=== PATIENT | male | born 1930 | race Caucasian/White ===

== ENCOUNTER 2017-02-23 10:54 | Inpatient (IN) | payer MEDICARE, OTHER ==
[~2017-02-23] VITALS: Ht 180.3 cm; Wt 74.1 kg
[2017-02-23 12:15] LABS: HEMATOCRIT 44.7 % (39.2-51.8); HEMOGLOBIN 15.3 g/dL (13.7-18.0); WHITE BLOOD COUNT 10.3 x10^3/uL (3.4-10)
[2017-02-23 12:19] LABS: RAPID INFLUENZA A Negative (Negative); RAPID INFLUENZA B Negative (Negative)
[2017-02-23 12:26] LABS: ASPARTATE AMINO TRANSFERASE 16 U/L (15-37); BLOOD UREA NITROGEN 10 mg/dL (7-18)
[2017-02-23] MEDS ORDERED: CEFTRIAXONE PMX 1GM/50ML 50 ML IVPB ONE (13:00)
[2017-02-23] MEDS ORDERED: SODIUM CHLORIDE 0.9% 1,000 ML IV ONE (13:04)
[2017-02-23] MEDS ORDERED: SODIUM CHLORIDE FLUSH 10ML SYR IVF PRN (13:30)
[2017-02-23] MEDS ORDERED: OMEP20TA62 PO (13:40)
[2017-02-23] MEDS ORDERED: HYDR12.53 PO (13:40)
[2017-02-23] MEDS ORDERED: CEFTRIAXONE PMX 1GM/50ML 50 ML ONE (13:43)
[2017-02-23] MEDS: D5%-0.45% NACL 1,000 ML IV SCH (13:54)
[2017-02-23] MEDS ORDERED: ONDANSETRON 2MG/ML, 2ML IVPush PRN (14:00)
[2017-02-23] MEDS ORDERED: ACETAMINOPHEN 325 MG TABLET PO PRN (14:00)
[2017-02-23] MEDS ORDERED: BISACODYL 10 MG SUPP PR PRN (14:00)
[2017-02-23] MEDS ORDERED: DOCUSATE 100 MG CAPSULE PO PRN (14:00)
[2017-02-23] MEDS ORDERED: ONDANSETRON ODT 4 MG PO PRN (14:00)
[2017-02-23] MEDS ORDERED: PHARMACY MAY ADJ FOR RENAL FX MC PRN (14:00)
[2017-02-23 14:45] VITALS: BP 129/78
[2017-02-23] MEDS ORDERED: ALBUTEROL/IPRATROPIUM 2.5MG/0.5MG, 3 ML ONE (17:03)
[2017-02-23] MEDS: ENOXAPARIN 40 MG/0.4 ML SQ SCH (17:06)
[2017-02-23] MEDS: AZITHROMYCIN 500 MG in SODIUM CHLORIDE 0.9% 250 ML IV SCH (17:06)
[2017-02-23] MEDS ORDERED: ALBUTEROL/IPRATROPIUM 2.5MG/0.5MG, 3 ML NPPB PRN (17:30)
[2017-02-23 20:03] VITALS: BP 119/51
[2017-02-24] MEDS ORDERED: CEFTRIAXONE PMX 1GM/50ML 50 ML IVPB SCH (02:00)
[2017-02-24] MEDS: CEFTRIAXONE 1,000 MG in DEXTROSE 5% 50 ML IVPB SCH (02:04)
[2017-02-24] MEDS: D5%-0.45% NACL 1,000 ML IV SCH ×3 (02:05→20:31)
[2017-02-24 02:12] VITALS: BP 139/69
[2017-02-24 05:49] LABS: HEMATOCRIT 38.5 % (39.2-51.8); HEMOGLOBIN 13.2 g/dL (13.7-18.0); WHITE BLOOD COUNT 9.2 x10^3/uL (3.4-10)
[2017-02-24 07:10] VITALS: BP 126/57
[2017-02-24] MEDS: HYDROCHLOROTHIAZIDE 12.5 MG CAPSULE PO SCH (08:35)
[2017-02-24] MEDS ORDERED: OMEPRAZOLE 20 MG CAPSULE.DR PO SCH (09:00)
[2017-02-24] MEDS: GUAIFENESIN/DM 200-20MG, 10ML UDC PO PRN ×2 (11:00→20:31)
[2017-02-24 11:51] LABS: IS PT STATUS REG ER OR PRE ER? NO
[2017-02-24] MEDS: AZITHROMYCIN 500 MG in SODIUM CHLORIDE 0.9% 250 ML IV SCH (14:09)
[2017-02-24] MEDS: ENOXAPARIN 40 MG/0.4 ML SQ SCH (14:10)
[2017-02-24 14:15] VITALS: BP 147/72
[2017-02-24] MEDS ORDERED: FLU VACC QS2017-18 (36MOS+) UP/PF 0.5 ML IM-VACC ONE (15:00)
[2017-02-24] MEDS ORDERED: PNEUMOCOCCAL 23 VACCINE IM-VACC ONE (15:00)
[2017-02-24] MEDS ORDERED: OMNIPAQUE 350 MG/ML, 100ML BOTTLE ONE (15:32)
[2017-02-24 17:23] LABS: IS PT STATUS REG ER OR PRE ER? NO
[2017-02-24 19:56] VITALS: BP 136/64
[2017-02-24 23:25] LABS: IS PT STATUS REG ER OR PRE ER? NO
[2017-02-25] MEDS: CEFTRIAXONE 1,000 MG in DEXTROSE 5% 50 ML IVPB SCH (02:17)
[2017-02-25] MEDS: GUAIFENESIN/DM 200-20MG, 10ML UDC PO PRN ×3 (02:20→18:42)
[2017-02-25 02:21] VITALS: BP 158/74
[2017-02-25] MEDS: D5%-0.45% NACL 1,000 ML IV SCH ×3 (06:18→23:30)
[2017-02-25 06:19] LABS: IS PT STATUS REG ER OR PRE ER? NO
[2017-02-25 07:39] VITALS: BP 120/62
[2017-02-25] MEDS: HYDROCHLOROTHIAZIDE 12.5 MG CAPSULE PO SCH (08:54)
[2017-02-25] MEDS: ALBUTEROL/IPRATROPIUM 2.5MG/0.5MG, 3 ML NPPB SCH ×4 (11:00→23:00)
[2017-02-25 13:27] VITALS: BP 132/58
[2017-02-25] MEDS: AZITHROMYCIN 500 MG in SODIUM CHLORIDE 0.9% 250 ML IV SCH (14:13)
[2017-02-25] MEDS: ENOXAPARIN 40 MG/0.4 ML SQ SCH (15:49)
[2017-02-25 20:12] VITALS: BP 159/72
[2017-02-26] MEDS ORDERED: CEFTRIAXONE 1,000 MG in SODIUM CHLORIDE 0.9% 50 ML IVPB SCH (02:00)
[2017-02-26 02:11] VITALS: BP 129/61
[2017-02-26] MEDS: ALBUTEROL/IPRATROPIUM 2.5MG/0.5MG, 3 ML NPPB SCH ×6 (02:49→23:00)
[2017-02-26 05:39] LABS: HEMATOCRIT 38.4 % (39.2-51.8); WHITE BLOOD COUNT 10.8 x10^3/uL (3.4-10)
[2017-02-26 05:47] LABS: BLOOD UREA NITROGEN 6 mg/dL (7-18)
[2017-02-26 05:51] LABS: ASPARTATE AMINO TRANSFERASE 62 U/L (15-37)
[2017-02-26] MEDS ORDERED: POTASSIUM CHLORIDE 20 MEQ in SODIUM CHLORIDE 0.9% 250 ML IV ONE (07:00)
[2017-02-26 08:25] VITALS: BP 136/64
[2017-02-26] MEDS: HYDROCHLOROTHIAZIDE 12.5 MG CAPSULE PO SCH (09:20)
[2017-02-26] MEDS: D5%-0.45% NACL 1,000 ML IV SCH ×2 (13:22→23:50)
[2017-02-26] MEDS ORDERED: LIDOCAINE 1%, 20ML ONE (14:48)
[2017-02-26] MEDS: PIPERACILLIN/TAZO/PMX 4.5GM 100 ML IV SCH ×2 (15:10→22:08)
[2017-02-26] MEDS: ENOXAPARIN 40 MG/0.4 ML SQ SCH (15:10)
[2017-02-26 17:15] VITALS: BP 152/67
[2017-02-26 19:28] VITALS: BP 130/65
[2017-02-27 02:30] VITALS: BP 134/72
[2017-02-27] MEDS: ALBUTEROL/IPRATROPIUM 2.5MG/0.5MG, 3 ML NPPB SCH ×8 (03:00→20:10)
[2017-02-27 05:55] LABS: HEMATOCRIT 38.3 % (39.2-51.8); HEMOGLOBIN 13.2 g/dL (13.7-18.0)
[2017-02-27 06:06] LABS: BLOOD UREA NITROGEN 6 mg/dL (7-18)
[2017-02-27] MEDS: PIPERACILLIN/TAZO/PMX 4.5GM 100 ML IV SCH ×2 (07:12→15:37)
[2017-02-27 07:20] VITALS: BP 149/66
[2017-02-27] MEDS: D5%-0.45% NACL 1,000 ML IV SCH ×2 (08:15→15:14)
[2017-02-27] MEDS: HYDROCHLOROTHIAZIDE 12.5 MG CAPSULE PO SCH (08:15)
[2017-02-27] MEDS ORDERED: FENTANYL PF 100 MCG/2ML ONE (09:10)
[2017-02-27] MEDS ORDERED: MIDAZOLAM 1 MG/ML, 5ML ONE (09:11)
[2017-02-27 13:55] VITALS: BP 133/71
[2017-02-27] MEDS: ENOXAPARIN 40 MG/0.4 ML SQ SCH (15:14)
[2017-02-27] MEDS ORDERED: POTASSIUM CHLORIDE 20 MEQ TAB.ER.PRT PO ONE ×2 (15:30→17:00)
[2017-02-27] MEDS: D5%-0.45NACL+KCL 20MEQ 1,000 ML IV SCH (16:29)
[2017-02-27 18:50] LABS: BLOOD UREA NITROGEN 5 mg/dL (7-18)
[2017-02-27 21:00] VITALS: BP 147/78
[2017-02-27] MEDS: ZOLPIDEM 5MG TABLET PO SCH (21:00)
[2017-02-27] MEDS: PIPERACILLIN/TAZO 4.5 GM in DEXTROSE 5% 100 ML IV SCH (22:55)
[2017-02-28] MEDS: D5%-0.45NACL+KCL 20MEQ 1,000 ML IV SCH ×3 (00:36→20:00)
[2017-02-28 01:48] VITALS: BP 127/76
[2017-02-28] MEDS ORDERED: SODIUM CHLORIDE INHALATION 7%, 4 ML NPPB ONE (05:00)
[2017-02-28] MEDS: PIPERACILLIN/TAZO 4.5 GM in DEXTROSE 5% 100 ML IV SCH ×3 (05:26→23:09)
[2017-02-28 06:49] LABS: ASPARTATE AMINO TRANSFERASE 41 U/L (15-37); BLOOD UREA NITROGEN 6 mg/dL (7-18)
[2017-02-28 07:52] LABS: HEMATOCRIT 37.4 % (39.2-51.8); HEMOGLOBIN 12.8 g/dL (13.7-18.0); WHITE BLOOD COUNT 9.9 x10^3/uL (3.4-10)
[2017-02-28] MEDS: ALBUTEROL/IPRATROPIUM 2.5MG/0.5MG, 3 ML NPPB SCH ×4 (07:55→19:30)
[2017-02-28 08:30] VITALS: BP 124/70
[2017-02-28] MEDS ORDERED: IBUPROFEN 200 MG TABLET PO PRN (08:30)
[2017-02-28] MEDS: HYDROCHLOROTHIAZIDE 12.5 MG CAPSULE PO SCH (10:01)
[2017-02-28] MEDS ORDERED: POTASSIUM CHLORIDE 40 MEQ in SODIUM CHLORIDE 0.9% 500 ML IV ONE (11:00)
[2017-02-28] MEDS: ENOXAPARIN 40 MG/0.4 ML SQ SCH (14:04)
[2017-02-28 14:17] VITALS: BP 118/66
[2017-02-28 20:12] VITALS: BP 142/73
[2017-02-28] MEDS: ZOLPIDEM 5MG TABLET PO SCH (21:00)
[2017-03-01] MEDS: ALBUTEROL/IPRATROPIUM 2.5MG/0.5MG, 3 ML NPPB SCH ×5 (03:10→22:00)
[2017-03-01 04:37] VITALS: BP 127/66
[2017-03-01 04:41] VITALS: BP 127/66
[2017-03-01] MEDS: D5%-0.45NACL+KCL 20MEQ 1,000 ML IV SCH ×2 (05:06→22:58)
[2017-03-01] MEDS: PIPERACILLIN/TAZO 4.5 GM in DEXTROSE 5% 100 ML IV SCH ×3 (06:49→22:58)
[2017-03-01 08:00] VITALS: BP 121/77
[2017-03-01] MEDS ORDERED: POTASSIUM CHLORIDE 20 MEQ TAB.ER.PRT PO ONE (08:30)
[2017-03-01] MEDS ORDERED: D5%-0.45NACL+KCL 40MEQ 1,000 ML IV SCH (08:30)
[2017-03-01] MEDS ORDERED: POTASSIUM CHLORIDE 20 MEQ TAB.ER.PRT PO SCH ×2 (08:30→17:00)
[2017-03-01 08:33] LABS: HEMATOCRIT 37.4 % (39.2-51.8); HEMOGLOBIN 12.8 g/dL (13.7-18.0); WHITE BLOOD COUNT 10.2 x10^3/uL (3.4-10)
[2017-03-01 08:40] LABS: BLOOD UREA NITROGEN 8 mg/dL (7-18)
[2017-03-01] MEDS: HYDROCHLOROTHIAZIDE 12.5 MG CAPSULE PO SCH (09:32)
[2017-03-01] MEDS ORDERED: D5%-0.45NACL+KCL 20MEQ 1,000 ML IV SCH (12:00)
[2017-03-01 13:10] VITALS: BP 132/77
[2017-03-01 20:59] VITALS: BP 161/77
[2017-03-01] MEDS: ZOLPIDEM 5MG TABLET PO SCH (21:00)
[2017-03-01] MEDS: GUAIFENESIN/DM 200-20MG, 10ML UDC PO PRN (22:59)
[2017-03-02 05:00] VITALS: BP 149/75
[2017-03-02 05:25] LABS: HEMATOCRIT 37.6 % (39.2-51.8); HEMOGLOBIN 12.7 g/dL (13.7-18.0); WHITE BLOOD COUNT 12.2 x10^3/uL (3.4-10)
[2017-03-02 05:39] LABS: BLOOD UREA NITROGEN 8 mg/dL (7-18)
[2017-03-02] MEDS: PIPERACILLIN/TAZO 4.5 GM in DEXTROSE 5% 100 ML IV SCH ×3 (07:00→23:01)
[2017-03-02] MEDS: ALBUTEROL/IPRATROPIUM 2.5MG/0.5MG, 3 ML NPPB SCH ×2 (07:55→11:20)
[2017-03-02 08:45] VITALS: BP 130/71
[2017-03-02] MEDS: D5%-0.45NACL+KCL 20MEQ 1,000 ML IV SCH ×2 (08:51→18:48)
[2017-03-02] MEDS: HYDROCHLOROTHIAZIDE 12.5 MG CAPSULE PO SCH (08:51)
[2017-03-02 09:39] LABS: ABG COLLECTION SITE RIGHT RADIAL; COLLATERAL CIRCULATION TESTING NORMAL; FIO2 70 %
[2017-03-02] MEDS ORDERED: AZITHROMYCIN 500 MG in SODIUM CHLORIDE 0.9% 250 ML IV ONE (13:00)
[2017-03-02] MEDS ORDERED: FENTANYL PF 100 MCG/2ML ONE (13:06)
[2017-03-02] MEDS: PROPOFOL 100 ML IV PRN ×2 (13:30→19:27)
[2017-03-02] MEDS ORDERED: FENTANYL PF 100 MCG/2ML IV ONE (13:30)
[2017-03-02] MEDS: FENTANYL PF 100 MCG/2ML IVPush PRN ×2 (13:50→14:40)
[2017-03-02] MEDS ORDERED: SENNOSIDES 8.8 MG/5 ML ORAL SOL NG PRN (14:00)
[2017-03-02] MEDS ORDERED: SENNA/DOCUSATE TABLET NG PRN (14:00)
[2017-03-02] MEDS ORDERED: PHARMACY MAY ADJ FOR RENAL FX MC SCH (14:00)
[2017-03-02] MEDS ORDERED: LIDOCAINE-MPF 1%, 2ML ENDO PRN (14:00)
[2017-03-02 14:53] LABS: ABG COLLECTION SITE RIGHT RADIAL
[2017-03-02 14:54] LABS: COLLATERAL CIRCULATION TESTING NORMAL
[2017-03-02] MEDS: FAMOTIDINE 20 MG/2 ML IV SCH (17:39)
[2017-03-02] MEDS: ALBUTEROL/IPRATROPIUM 2.5MG/0.5MG, 3 ML INLINE SCH ×2 (18:00→22:00)
[2017-03-02] MEDS: NOREPINEPHRINE 4 MG in SODIUM CHLORIDE 0.9% 246 ML IV PRN (19:30)
[2017-03-02] MEDS: ZOLPIDEM 5MG TABLET PO SCH (20:52)
[2017-03-02] MEDS ORDERED: SODIUM CHLORIDE 0.9% 1,000ML IVBOLUS ONE ×2 (21:30→23:30)
[2017-03-03] MEDS: ALBUTEROL/IPRATROPIUM 2.5MG/0.5MG, 3 ML INLINE SCH ×6 (02:00→22:00)
[2017-03-03] MEDS: FAMOTIDINE 20 MG/2 ML IV SCH ×2 (02:20→14:48)
[2017-03-03] MEDS: PROPOFOL 100 ML IV PRN ×4 (03:53→23:14)
[2017-03-03] MEDS: NOREPINEPHRINE 4 MG in SODIUM CHLORIDE 0.9% 246 ML IV PRN (03:58)
[2017-03-03 04:00] VITALS: BP 114/60
[2017-03-03 04:16] LABS: ABG COLLECTION SITE RIGHT RADIAL; COLLATERAL CIRCULATION TESTING NORMAL
[2017-03-03 04:30] LABS: ASPARTATE AMINO TRANSFERASE 24 U/L (15-37); BLOOD UREA NITROGEN 19 mg/dL (7-18)
[2017-03-03 04:37] LABS: HEMATOCRIT 37.6 % (39.2-51.8); HEMOGLOBIN 12.6 g/dL (13.7-18.0); WHITE BLOOD COUNT 16.1 x10^3/uL (3.4-10)
[2017-03-03] MEDS: D5%-0.45NACL+KCL 20MEQ 1,000 ML IV SCH ×2 (06:22→16:22)
[2017-03-03] MEDS: PIPERACILLIN/TAZO 4.5 GM in DEXTROSE 5% 100 ML IV SCH ×3 (06:40→22:52)
[2017-03-03] MEDS ORDERED: ALBUMIN HUMAN 25% 100 ML IV SCH (08:30)
[2017-03-03] MEDS: HYDROCHLOROTHIAZIDE 12.5 MG CAPSULE PO SCH (09:00)
[2017-03-03] MEDS: ALBUMIN HUMAN 25% 100 ML IV SCH ×3 (09:00→21:11)
[2017-03-03] MEDS: PICC FLUSH PROTOCOL XX SCH ×2 (09:30→21:00)
[2017-03-03] MEDS: AZITHROMYCIN 250 MG TABLET PO SCH (13:50)
[2017-03-03] MEDS ORDERED: VECURONIUM 10 MG ONE (14:00)
[2017-03-03] MEDS ORDERED: MIDAZOLAM 1 MG/ML, 5ML ONE (14:00)
[2017-03-03] MEDS ORDERED: PROPOFOL 10 MG/ML, 100ML IV ONE (14:00)
[2017-03-03] MEDS ORDERED: SUCCINYLCHOLINE 20 MG/ML, 10ML ONE (14:00)
[2017-03-03] MEDS ORDERED: SODIUM CHLORIDE 0.9%, 500ML IVBOLUS ONE ×3 (17:00→20:00)
[2017-03-03] MEDS: ZOLPIDEM 5MG TABLET PO SCH (21:00)
[2017-03-04] MEDS: ALBUTEROL/IPRATROPIUM 2.5MG/0.5MG, 3 ML INLINE SCH ×6 (02:00→22:26)
[2017-03-04] MEDS: FAMOTIDINE 20 MG/2 ML IV SCH ×2 (02:55→14:35)
[2017-03-04] MEDS: ALBUMIN HUMAN 25% 100 ML IV SCH ×4 (02:55→20:51)
[2017-03-04 04:26] LABS: ABG COLLECTION SITE RIGHT RADIAL; COLLATERAL CIRCULATION TESTING NORMAL
[2017-03-04 04:37] LABS: HEMATOCRIT 30.8 % (39.2-51.8); HEMOGLOBIN 10.4 g/dL (13.7-18.0); WHITE BLOOD COUNT 9.2 x10^3/uL (3.4-10)
[2017-03-04 04:38] LABS: BLOOD UREA NITROGEN 27 mg/dL (7-18)
[2017-03-04 05:00] VITALS: BP 113/58
[2017-03-04] MEDS: PIPERACILLIN/TAZO 4.5 GM in DEXTROSE 5% 100 ML IV SCH ×2 (05:27→14:35)
[2017-03-04] MEDS: PROPOFOL 100 ML IV PRN ×2 (05:28→21:37)
[2017-03-04] MEDS: AZITHROMYCIN 250 MG TABLET PO SCH (09:00)
[2017-03-04] MEDS: PICC FLUSH PROTOCOL XX SCH ×2 (09:00→20:52)
[2017-03-04] MEDS: ENOXAPARIN 40 MG/0.4 ML SQ SCH (09:20)
[2017-03-04] MEDS: D5%-0.45NACL+KCL 20MEQ 1,000 ML IV SCH ×2 (09:31→19:41)
[2017-03-04] MEDS: HYDROCHLOROTHIAZIDE 12.5 MG CAPSULE PO SCH (10:16)
[2017-03-04 14:07] LABS: CHLAMYDIA PNEUMONIAE IGM <1:10 (Neg:<1:10)
[2017-03-04] MEDS: FENTANYL PF 100 MCG/2ML IVPush PRN ×2 (14:35→22:28)
[2017-03-04] MEDS ORDERED: SODIUM CHLORIDE 0.9%, 500ML IVBOLUS PRN (18:00)
[2017-03-04] MEDS: ZOLPIDEM 5MG TABLET PO SCH (20:52)
[2017-03-04] MEDS: [UNRECOGNIZED DRUG - MIXTURE] IVPB SCH (23:00)
[2017-03-05] MEDS ORDERED: SODIUM CHLORIDE 0.9% 500 ML IV PRN (00:30)
[2017-03-05] MEDS: FAMOTIDINE 20 MG/2 ML IV SCH ×2 (02:06→16:17)
[2017-03-05] MEDS: ALBUTEROL/IPRATROPIUM 2.5MG/0.5MG, 3 ML INLINE SCH ×6 (02:18→22:30)
[2017-03-05] MEDS: FENTANYL PF 100 MCG/2ML IVPush PRN ×4 (02:34→16:15)
[2017-03-05] MEDS: ALBUMIN HUMAN 25% 100 ML IV SCH ×4 (03:18→20:23)
[2017-03-05 04:31] LABS: ABG COLLECTION SITE RIGHT RADIAL; COLLATERAL CIRCULATION TESTING NORMAL
[2017-03-05 04:35] VITALS: BP 127/56
[2017-03-05 04:35] LABS: HEMATOCRIT 28.1 % (39.2-51.8); HEMOGLOBIN 9.4 g/dL (13.7-18.0); WHITE BLOOD COUNT 7.1 x10^3/uL (3.4-10)
[2017-03-05 04:46] LABS: BLOOD UREA NITROGEN 29 mg/dL (7-18)
[2017-03-05] MEDS: [UNRECOGNIZED DRUG - MIXTURE] IVPB SCH ×3 (06:39→23:37)
[2017-03-05] MEDS ORDERED: GLUCAGON 1 MG IM PRN (08:00)
[2017-03-05] MEDS ORDERED: DEXTROSE 4 GM TAB.CHEW PO PRN (08:00)
[2017-03-05] MEDS ORDERED: DEXTROSE 50%, 50ML SYRINGE IVPush PRN (08:00)
[2017-03-05] MEDS: ENOXAPARIN 40 MG/0.4 ML SQ SCH (08:36)
[2017-03-05] MEDS: AZITHROMYCIN 250 MG TABLET PO SCH (08:37)
[2017-03-05] MEDS: HYDROCHLOROTHIAZIDE 12.5 MG CAPSULE PO SCH (08:37)
[2017-03-05] MEDS: SODIUM CHLORIDE FLUSH 10ML SYR IVF SCH ×2 (08:39→21:00)
[2017-03-05] MEDS: PICC FLUSH PROTOCOL XX SCH ×2 (08:39→21:00)
[2017-03-05] MEDS ORDERED: INSULIN ASPART 100 UNITS/ML, PEN ONE (08:50)
[2017-03-05] MEDS: OCULAR LUBRICANT OPHTH OINT 3.5 GM EACHEYE PRN ×2 (08:55→12:59)
[2017-03-05] MEDS: INSULIN ASPART 100 UNITS/ML, PEN SQ-INSULIN SCH ×3 (08:55→20:23)
[2017-03-05] MEDS: PROPOFOL 100 ML IV PRN ×3 (09:10→23:37)
[2017-03-05] MEDS ORDERED: FUROSEMIDE 20 MG/2 ML IV ONE (11:00)
[2017-03-05] MEDS: BISACODYL 10 MG SUPP PR PRN (12:58)
[2017-03-05] MEDS ORDERED: POLYETHYLENE GLYCOL 17 GM PACKET NG ONE (13:00)
[2017-03-05 23:06] LABS: ADENOVIRUS PCR Negative (Negative); INFLUENZA A PCR Negative (Negative); INFLUENZA B PCR Negative (Negative); METAPNEUMOVIRUS PCR Negative (Negative); PARAINFLUENZA 1 PCR Negative (Negative); PARAINFLUENZA 2 PCR Negative (Negative); PARAINFLUENZA 3 PCR Negative (Negative); RESP SYNCYTIAL VIRUS A PCR Negative (Negative); RESP SYNCYTIAL VIRUS B PCR Negative (Negative); RHINOVIRUS PCR Negative (Negative)
[2017-03-06 02:30] LABS: BLOOD UREA NITROGEN 36 mg/dL (7-18)
[2017-03-06 02:32] LABS: HEMATOCRIT 29.3 % (39.2-51.8); WHITE BLOOD COUNT 7.3 x10^3/uL (3.4-10)
[2017-03-06] MEDS: ALBUTEROL/IPRATROPIUM 2.5MG/0.5MG, 3 ML INLINE SCH ×6 (02:32→21:55)
[2017-03-06] MEDS: FAMOTIDINE 20 MG/2 ML IV SCH ×2 (02:56→16:38)
[2017-03-06] MEDS: ALBUMIN HUMAN 25% 100 ML IV SCH ×4 (02:56→19:13)
[2017-03-06] MEDS: INSULIN ASPART 100 UNITS/ML, PEN SQ-INSULIN SCH ×4 (03:27→20:32)
[2017-03-06 04:17] VITALS: BP 131/59
[2017-03-06 04:36] LABS: ABG COLLECTION SITE LEFT RADIAL; COLLATERAL CIRCULATION TESTING NORMAL
[2017-03-06] MEDS: PROPOFOL 100 ML IV PRN ×3 (05:19→18:25)
[2017-03-06] MEDS: [UNRECOGNIZED DRUG - MIXTURE] IVPB SCH ×3 (06:25→23:26)
[2017-03-06] MEDS: ENOXAPARIN 40 MG/0.4 ML SQ SCH (08:05)
[2017-03-06] MEDS: PICC FLUSH PROTOCOL XX SCH ×2 (09:00→21:00)
[2017-03-06] MEDS: SODIUM CHLORIDE FLUSH 10ML SYR IVF SCH ×3 (09:00→20:32)
[2017-03-06] MEDS: AZITHROMYCIN 250 MG TABLET PO SCH (09:22)
[2017-03-06] MEDS: OCULAR LUBRICANT OPHTH OINT 3.5 GM EACHEYE PRN ×2 (09:25→16:55)
[2017-03-06] MEDS: FUROSEMIDE 20 MG/2 ML IV SCH ×2 (10:50→20:31)
[2017-03-06] MEDS: FENTANYL PF 100 MCG/2ML IVPush PRN (11:50)
[2017-03-07] MEDS: LACTULOSE 20 GM/30 ML UDC NG PRN (01:31)
[2017-03-07] MEDS: ALBUTEROL/IPRATROPIUM 2.5MG/0.5MG, 3 ML INLINE SCH ×6 (01:36→22:00)
[2017-03-07] MEDS: FAMOTIDINE 20 MG/2 ML IV SCH ×2 (01:46→14:51)
[2017-03-07] MEDS: ALBUMIN HUMAN 25% 100 ML IV SCH ×2 (03:07→09:00)
[2017-03-07] MEDS: INSULIN ASPART 100 UNITS/ML, PEN SQ-INSULIN SCH ×4 (03:18→20:46)
[2017-03-07 04:00] VITALS: BP 146/59
[2017-03-07 04:16] LABS: ABG COLLECTION SITE RIGHT RADIAL; COLLATERAL CIRCULATION TESTING NORMAL
[2017-03-07 04:38] LABS: BLOOD UREA NITROGEN 38 mg/dL (7-18)
[2017-03-07 04:45] LABS: HEMATOCRIT 28.1 % (39.2-51.8); HEMOGLOBIN 9.7 g/dL (13.7-18.0); WHITE BLOOD COUNT 6.2 x10^3/uL (3.4-10)
[2017-03-07] MEDS: PROPOFOL 100 ML IV PRN ×3 (05:21→17:44)
[2017-03-07] MEDS: [UNRECOGNIZED DRUG - MIXTURE] IVPB SCH ×3 (06:29→23:04)
[2017-03-07] MEDS: FUROSEMIDE 20 MG/2 ML IV SCH (08:30)
[2017-03-07] MEDS: PICC FLUSH PROTOCOL XX SCH ×2 (09:00→20:48)
[2017-03-07] MEDS: ENOXAPARIN 40 MG/0.4 ML SQ SCH (09:07)
[2017-03-07] MEDS: AZITHROMYCIN 250 MG TABLET PO SCH (09:07)
[2017-03-07] MEDS: FENTANYL PF 100 MCG/2ML IVPush PRN ×2 (09:17→17:44)
[2017-03-07] MEDS: SODIUM CHLORIDE FLUSH 10ML SYR IVF SCH (20:45)
[2017-03-07 22:06] LABS: COCCIDIOIDES AB (CF) <1:2 (<1:2); COCCIDIOIDES AB (ID) None Detected (.); COCCIDIOIDES IGG 0.6 IV (<=0.9); COCCIDIOIDES IGM 0.6 IV (<=0.9)
[2017-03-08] MEDS: FENTANYL PF 100 MCG/2ML IVPush PRN ×2 (01:54→12:38)
[2017-03-08] MEDS: ALBUTEROL/IPRATROPIUM 2.5MG/0.5MG, 3 ML INLINE SCH ×6 (02:45→22:47)
[2017-03-08] MEDS: FAMOTIDINE 20 MG/2 ML IV SCH ×2 (03:25→15:31)
[2017-03-08] MEDS: INSULIN ASPART 100 UNITS/ML, PEN SQ-INSULIN SCH ×4 (03:28→21:49)
[2017-03-08 04:00] VITALS: BP 134/50
[2017-03-08 04:27] LABS: ABG COLLECTION SITE LEFT RADIAL; COLLATERAL CIRCULATION TESTING NORMAL
[2017-03-08 04:37] LABS: HEMATOCRIT 30.2 % (39.2-51.8); HEMOGLOBIN 10.2 g/dL (13.7-18.0); WHITE BLOOD COUNT 8.2 x10^3/uL (3.4-10)
[2017-03-08 04:44] LABS: BLOOD UREA NITROGEN 43 mg/dL (7-18)
[2017-03-08] MEDS: [UNRECOGNIZED DRUG - MIXTURE] IVPB SCH ×3 (07:35→23:38)
[2017-03-08] MEDS: PICC FLUSH PROTOCOL XX SCH ×2 (09:00→21:00)
[2017-03-08] MEDS ORDERED: FUROSEMIDE 40 MG/4 ML IV ONE ×2 (09:30→22:00)
[2017-03-08] MEDS: ENOXAPARIN 40 MG/0.4 ML SQ SCH (10:04)
[2017-03-08] MEDS: AZITHROMYCIN 250 MG TABLET PO SCH (10:04)
[2017-03-08] MEDS: SODIUM CHLORIDE FLUSH 10ML SYR IVF SCH ×2 (10:04→21:44)
[2017-03-08] MEDS: RISPERIDONE 0.5 MG TABLET PO SCH ×2 (10:14→21:45)
[2017-03-08] MEDS: LACTULOSE 20 GM/30 ML UDC NG PRN (10:36)
[2017-03-08] MEDS: BISACODYL 10 MG SUPP PR PRN (12:48)
[2017-03-08] MEDS: PROPOFOL 100 ML IV PRN ×2 (18:02→23:39)
[2017-03-09] MEDS: ALBUTEROL/IPRATROPIUM 2.5MG/0.5MG, 3 ML INLINE SCH ×7 (02:25→22:47)
[2017-03-09] MEDS: FAMOTIDINE 20 MG/2 ML IV SCH ×2 (02:32→14:32)
[2017-03-09] MEDS: INSULIN ASPART 100 UNITS/ML, PEN SQ-INSULIN SCH ×4 (02:32→20:31)
[2017-03-09 03:39] LABS: HEMATOCRIT 30.6 % (39.2-51.8); HEMOGLOBIN 10.2 g/dL (13.7-18.0); WHITE BLOOD COUNT 9.6 x10^3/uL (3.4-10)
[2017-03-09 03:51] LABS: BLOOD UREA NITROGEN 40 mg/dL (7-18)
[2017-03-09 03:58] VITALS: BP 135/46
[2017-03-09 04:18] LABS: ABG COLLECTION SITE LEFT RADIAL; COLLATERAL CIRCULATION TESTING NORMAL
[2017-03-09] MEDS: [UNRECOGNIZED DRUG - MIXTURE] IVPB SCH ×3 (06:00→22:04)
[2017-03-09] MEDS ORDERED: METHYLNALTREXONE 12 MG/0.6 ML SQ ONE (08:30)
[2017-03-09] MEDS ORDERED: FUROSEMIDE 20 MG/2 ML IV ONE ×2 (08:30→20:00)
[2017-03-09] MEDS: hydrALAzine 20 MG/ML, 1ML IVPush PRN (08:35)
[2017-03-09] MEDS: RISPERIDONE 0.5 MG TABLET PO SCH ×2 (08:44→20:30)
[2017-03-09] MEDS: ENOXAPARIN 40 MG/0.4 ML SQ SCH (08:44)
[2017-03-09] MEDS: AZITHROMYCIN 250 MG TABLET PO SCH (08:44)
[2017-03-09] MEDS: FENTANYL PF 100 MCG/2ML IVPush PRN ×4 (09:10→22:19)
[2017-03-09] MEDS: SODIUM CHLORIDE FLUSH 10ML SYR IVF SCH ×2 (09:20→20:32)
[2017-03-09] MEDS: methylPREDNISolone SOD SUCC 125 MG/2 ML IVPush SCH ×3 (09:44→22:04)
[2017-03-09] MEDS: LABETALOL 5MG/ML, 20ML IVPush PRN ×2 (09:45→12:16)
[2017-03-09] MEDS: PICC FLUSH PROTOCOL XX SCH ×2 (11:00→21:00)
[2017-03-09] MEDS: BISACODYL 10 MG SUPP PR PRN (11:19)
[2017-03-09] MEDS: LABETALOL 100 MG TABLET PO SCH ×2 (18:00→21:58)
[2017-03-09 22:06] LABS: ADENOVIRUS PCR Negative (Negative); INFLUENZA A PCR Negative (Negative); INFLUENZA B PCR Negative (Negative); METAPNEUMOVIRUS PCR Negative (Negative); PARAINFLUENZA 1 PCR Negative (Negative); PARAINFLUENZA 2 PCR Negative (Negative); PARAINFLUENZA 3 PCR Negative (Negative); RESP SYNCYTIAL VIRUS A PCR Negative (Negative); RESP SYNCYTIAL VIRUS B PCR Negative (Negative); RHINOVIRUS PCR Negative (Negative)
[2017-03-10] MEDS: methylPREDNISolone SOD SUCC 125 MG/2 ML IVPush SCH ×4 (02:24→21:16)
[2017-03-10] MEDS: FENTANYL PF 100 MCG/2ML IVPush PRN ×2 (02:25→10:45)
[2017-03-10] MEDS: FAMOTIDINE 20 MG/2 ML IV SCH ×2 (02:25→14:37)
[2017-03-10] MEDS: INSULIN ASPART 100 UNITS/ML, PEN SQ-INSULIN SCH ×4 (02:28→21:22)
[2017-03-10] MEDS: ALBUTEROL/IPRATROPIUM 2.5MG/0.5MG, 3 ML INLINE SCH ×5 (03:06→18:25)
[2017-03-10] MEDS: LABETALOL 5MG/ML, 20ML IVPush PRN (03:59)
[2017-03-10 04:00] VITALS: BP 173/67
[2017-03-10 04:26] LABS: ABG COLLECTION SITE RIGHT RADIAL; COLLATERAL CIRCULATION TESTING NORMAL
[2017-03-10 04:34] LABS: HEMOGLOBIN 10.7 g/dL (13.7-18.0)
[2017-03-10 05:00] LABS: BLOOD UREA NITROGEN 50 mg/dL (7-18)
[2017-03-10] MEDS: LABETALOL 100 MG TABLET PO SCH ×3 (05:21→21:16)
[2017-03-10] MEDS: PROPOFOL 100 ML IV PRN (05:21)
[2017-03-10] MEDS: [UNRECOGNIZED DRUG - MIXTURE] IVPB SCH ×3 (06:42→22:35)
[2017-03-10] MEDS: PICC FLUSH PROTOCOL XX SCH ×2 (09:00→21:00)
[2017-03-10] MEDS ORDERED: FUROSEMIDE 20 MG/2 ML IV ONE (09:00)
[2017-03-10] MEDS: OXYcodone 5 MG/5 ML ORAL.SOL UDC NG SCH ×3 (09:34→21:15)
[2017-03-10] MEDS: RISPERIDONE 1 MG/ML ORAL SOLN NG SCH ×2 (09:34→21:16)
[2017-03-10] MEDS: AZITHROMYCIN 250 MG TABLET PO SCH (09:34)
[2017-03-10] MEDS: ENOXAPARIN 40 MG/0.4 ML SQ SCH (09:34)
[2017-03-10] MEDS: SODIUM CHLORIDE FLUSH 10ML SYR IVF SCH ×2 (09:34→21:15)
[2017-03-10 12:35] LABS: HEMATOCRIT 30.3 % (39.2-51.8)
[2017-03-10] MEDS ORDERED: LIDOCAINE 2%, 20ML ONE (12:59)
[2017-03-11] MEDS: INSULIN ASPART 100 UNITS/ML, PEN SQ-INSULIN SCH ×6 (02:58→20:54)
[2017-03-11] MEDS: methylPREDNISolone SOD SUCC 125 MG/2 ML IVPush SCH ×4 (03:12→20:55)
[2017-03-11] MEDS: FAMOTIDINE 20 MG/2 ML IV SCH ×2 (03:12→17:04)
[2017-03-11] MEDS: OXYcodone 5 MG/5 ML ORAL.SOL UDC NG SCH ×2 (03:12→08:30)
[2017-03-11 03:22] LABS: HEMATOCRIT 31.1 % (39.2-51.8); HEMOGLOBIN 10.1 g/dL (13.7-18.0)
[2017-03-11 03:28] LABS: BLOOD UREA NITROGEN 61 mg/dL (7-18)
[2017-03-11] MEDS: ALBUTEROL/IPRATROPIUM 2.5MG/0.5MG, 3 ML INLINE SCH ×2 (03:29→06:24)
[2017-03-11 04:00] VITALS: BP 155/67
[2017-03-11 04:21] LABS: ABG COLLECTION SITE LEFT RADIAL; COLLATERAL CIRCULATION TESTING NORMAL
[2017-03-11] MEDS: LABETALOL 100 MG TABLET PO SCH ×3 (05:11→20:55)
[2017-03-11] MEDS: [UNRECOGNIZED DRUG - MIXTURE] IVPB SCH (08:21)
[2017-03-11] MEDS: SODIUM CHLORIDE FLUSH 10ML SYR IVF SCH (08:28)
[2017-03-11] MEDS: ENOXAPARIN 40 MG/0.4 ML SQ SCH (08:28)
[2017-03-11] MEDS: RISPERIDONE 1 MG/ML ORAL SOLN NG SCH (09:00)
[2017-03-11] MEDS: PICC FLUSH PROTOCOL XX SCH ×2 (09:00→20:54)
[2017-03-11] MEDS ORDERED: FENTANYL PF 100 MCG/2ML IVPush PRN (10:00)
[2017-03-11] MEDS: ALBUTEROL/IPRATROPIUM 2.5MG/0.5MG, 3 ML IPPB SCH ×4 (10:15→22:00)
[2017-03-11] MEDS: INSULIN DETEMIR 100 UNITS/ML, PEN SQ-INSULIN SCH ×2 (11:01→20:54)
[2017-03-12] MEDS: FAMOTIDINE 20 MG/2 ML IV SCH ×2 (02:35→15:07)
[2017-03-12] MEDS: INSULIN ASPART 100 UNITS/ML, PEN SQ-INSULIN SCH ×4 (02:42→20:35)
[2017-03-12] MEDS: methylPREDNISolone SOD SUCC 125 MG/2 ML IVPush SCH ×3 (02:43→20:10)
[2017-03-12 04:00] VITALS: BP 149/56
[2017-03-12 04:29] LABS: ABG COLLECTION SITE RIGHT RADIAL; COLLATERAL CIRCULATION TESTING NORMAL; HEMATOCRIT 30.5 % (39.2-51.8); HEMOGLOBIN 10.1 g/dL (13.7-18.0); WHITE BLOOD COUNT 10.2 x10^3/uL (3.4-10)
[2017-03-12 04:40] LABS: BLOOD UREA NITROGEN 68 mg/dL (7-18)
[2017-03-12] MEDS: LABETALOL 100 MG TABLET PO SCH ×3 (05:45→22:33)
[2017-03-12] MEDS: ALBUTEROL/IPRATROPIUM 2.5MG/0.5MG, 3 ML IPPB SCH ×5 (08:00→19:40)
[2017-03-12] MEDS: ENOXAPARIN 40 MG/0.4 ML SQ SCH (08:31)
[2017-03-12] MEDS: PICC FLUSH PROTOCOL XX SCH ×2 (09:00→20:12)
[2017-03-12] MEDS ORDERED: POTASSIUM PHOSPHATE 44 MEQ in SODIUM CHLORIDE 0.9% 500 ML IV ONE (10:00)
[2017-03-12] MEDS ORDERED: SODIUM PHOSPHATE 20 MMOL in SODIUM CHLORIDE 0.9% 500 ML IV ONE (11:30)
[2017-03-12] MEDS: INSULIN DETEMIR 100 UNITS/ML, PEN SQ-INSULIN SCH ×2 (11:44→22:19)
[2017-03-13] MEDS: FAMOTIDINE 20 MG/2 ML IV SCH ×2 (02:29→14:00)
[2017-03-13] MEDS: methylPREDNISolone SOD SUCC 125 MG/2 ML IVPush SCH ×3 (03:19→20:08)
[2017-03-13] MEDS: INSULIN ASPART 100 UNITS/ML, PEN SQ-INSULIN SCH ×4 (03:19→20:08)
[2017-03-13 04:00] VITALS: BP 164/64
[2017-03-13 05:41] LABS: HEMATOCRIT 31.9 % (39.2-51.8); HEMOGLOBIN 10.7 g/dL (13.7-18.0); WHITE BLOOD COUNT 10.8 x10^3/uL (3.4-10)
[2017-03-13 05:52] LABS: BLOOD UREA NITROGEN 58 mg/dL (7-18)
[2017-03-13] MEDS: LABETALOL 100 MG TABLET PO SCH ×3 (06:00→21:07)
[2017-03-13] MEDS: ALBUTEROL/IPRATROPIUM 2.5MG/0.5MG, 3 ML IPPB SCH ×6 (06:00→22:49)
[2017-03-13] MEDS: ENOXAPARIN 40 MG/0.4 ML SQ SCH (08:51)
[2017-03-13] MEDS: PICC FLUSH PROTOCOL XX SCH ×2 (09:00→20:09)
[2017-03-13] MEDS: INSULIN DETEMIR 100 UNITS/ML, PEN SQ-INSULIN SCH ×2 (09:59→21:07)
[2017-03-13 12:06] LABS: ASPERGILLUS FUMIGATUS #1 AB Negative (Negative); AUREOBASIDIUM PULLULANS AB Negative (Negative); MICROPOLYSPORA FAENI AB Negative (Negative); PIGEON SERUM AB Negative (Negative); THERMOACTINOMYC SACCHARII AB Negative (Negative); THERMOACTINOMYC VULGARIS #1 AB Negative (Negative)
[2017-03-13] MEDS: ACETYLCYSTEINE 10%, 4ML NPPB SCH ×4 (14:01→22:49)
[2017-03-13] MEDS ORDERED: ALBUMIN HUMAN 25% 100 ML IV ONE (17:00)
[2017-03-13] MEDS ORDERED: FUROSEMIDE 20 MG/2 ML IV ONE (17:00)
[2017-03-13] MEDS: hydrALAzine 20 MG/ML, 1ML IVPush PRN (21:11)
[2017-03-13] MEDS ORDERED: HALOPERIDOL 5 MG/ML IV ONE (22:00)
[2017-03-13] MEDS ORDERED: LORazepam 2 MG/ML, 1ML ONE (22:21)
[2017-03-13] MEDS: LABETALOL 5MG/ML, 20ML IVPush PRN (22:24)
[2017-03-13] MEDS ORDERED: LORazepam 2 MG/ML, 1ML IVPush ONE (22:30)
[2017-03-14] MEDS ORDERED: LABETALOL 5MG/ML, 20ML IVPush ONE
[2017-03-14] MEDS: ALBUTEROL/IPRATROPIUM 2.5MG/0.5MG, 3 ML IPPB SCH ×6 (02:20→22:59)
[2017-03-14] MEDS: ACETYLCYSTEINE 10%, 4ML NPPB SCH ×6 (02:21→22:59)
[2017-03-14] MEDS: methylPREDNISolone SOD SUCC 125 MG/2 ML IVPush SCH (02:30)
[2017-03-14] MEDS: FAMOTIDINE 20 MG/2 ML IV SCH ×2 (02:30→14:33)
[2017-03-14] MEDS: INSULIN ASPART 100 UNITS/ML, PEN SQ-INSULIN SCH ×4 (02:33→21:54)
[2017-03-14 04:07] VITALS: BP 145/71
[2017-03-14 04:46] LABS: BLOOD UREA NITROGEN 53 mg/dL (7-18)
[2017-03-14] MEDS: LABETALOL 100 MG TABLET PO SCH ×3 (04:46→19:33)
[2017-03-14 05:57] LABS: HEMATOCRIT 33.3 % (39.2-51.8); HEMOGLOBIN 11.4 g/dL (13.7-18.0); WHITE BLOOD COUNT 18.6 x10^3/uL (3.4-10)
[2017-03-14] MEDS: PICC FLUSH PROTOCOL XX SCH ×2 (09:00→19:30)
[2017-03-14] MEDS: MEROPENEM 1 GM in SODIUM CHLORIDE 0.9% 100 ML IV SCH ×2 (10:20→16:56)
[2017-03-14] MEDS: methylPREDNISolone SOD SUCC 40 MG/ML IVPush SCH ×3 (10:23→19:29)
[2017-03-14] MEDS: ENOXAPARIN 40 MG/0.4 ML SQ SCH (10:23)
[2017-03-14] MEDS ORDERED: LIDOCAINE GEL 2%, 5ML TP ONE (11:00)
[2017-03-14] MEDS: INSULIN DETEMIR 100 UNITS/ML, PEN SQ-INSULIN SCH (14:49)
[2017-03-14] MEDS: LORazepam 2 MG/ML, 1ML IVPush PRN (19:51)
[2017-03-14] MEDS ORDERED: QUETIAPINE 25MG TABLET PO SCH (21:00)
[2017-03-15] MEDS: MEROPENEM 1 GM in SODIUM CHLORIDE 0.9% 100 ML IV SCH ×3 (01:17→17:08)
[2017-03-15] MEDS: methylPREDNISolone SOD SUCC 40 MG/ML IVPush SCH ×4 (02:32→21:06)
[2017-03-15] MEDS: INSULIN DETEMIR 100 UNITS/ML, PEN SQ-INSULIN SCH ×2 (02:33→15:13)
[2017-03-15] MEDS: INSULIN ASPART 100 UNITS/ML, PEN SQ-INSULIN SCH ×4 (02:33→21:13)
[2017-03-15] MEDS: FAMOTIDINE 20 MG/2 ML IV SCH ×2 (02:33→13:55)
[2017-03-15] MEDS: ACETYLCYSTEINE 10%, 4ML NPPB SCH ×2 (02:45→07:19)
[2017-03-15] MEDS: ALBUTEROL/IPRATROPIUM 2.5MG/0.5MG, 3 ML IPPB SCH ×5 (02:45→18:40)
[2017-03-15] MEDS: LORazepam 2 MG/ML, 1ML IVPush PRN (03:40)
[2017-03-15 04:00] VITALS: BP 155/72
[2017-03-15 04:29] LABS: HEMATOCRIT 36.2 % (39.2-51.8); HEMOGLOBIN 12.1 g/dL (13.7-18.0); WHITE BLOOD COUNT 16.7 x10^3/uL (3.4-10)
[2017-03-15 04:32] LABS: BLOOD UREA NITROGEN 51 mg/dL (7-18)
[2017-03-15] MEDS: LABETALOL 100 MG TABLET PO SCH ×3 (06:32→22:00)
[2017-03-15] MEDS ORDERED: PROPOFOL 100 ML IV ONE (08:00)
[2017-03-15] MEDS ORDERED: SUCCINYLCHOLINE 20 MG/ML, 10ML ONE (08:00)
[2017-03-15] MEDS ORDERED: ETOMIDATE 20 MG/10 ML ONE (08:00)
[2017-03-15] MEDS: PICC FLUSH PROTOCOL XX SCH ×2 (09:00→21:00)
[2017-03-15] MEDS: OXYcodone 5 MG/5 ML ORAL.SOL UDC NG PRN ×2 (09:31→18:02)
[2017-03-15] MEDS: ENOXAPARIN 40 MG/0.4 ML SQ SCH (09:35)
[2017-03-15] MEDS ORDERED: ACETYLCYSTEINE 10%, 4ML NPPB PRN (11:00)
[2017-03-15] MEDS: LABETALOL 5MG/ML, 20ML IVPush PRN ×2 (13:51→18:03)
[2017-03-15] MEDS ORDERED: LORazepam 2 MG/ML, 1ML ONE (18:49)
[2017-03-15] MEDS ORDERED: SUCCINYLCHOLINE 20 MG/ML, 10ML IVPush ONE (19:30)
[2017-03-15] MEDS ORDERED: ETOMIDATE 20 MG/10 ML IVPush ONE (19:30)
[2017-03-15] MEDS ORDERED: LORazepam 2 MG/ML, 1ML IVPush PRN (20:00)
[2017-03-15] MEDS ORDERED: PROPOFOL 100 ML IV PRN (20:00)
[2017-03-15] MEDS ORDERED: LIDOCAINE-MPF 1%, 2ML ENDO PRN (20:30)
[2017-03-15] MEDS ORDERED: LACTULOSE 20 GM/30 ML UDC NG PRN (20:30)
[2017-03-15] MEDS ORDERED: PHARMACY MAY ADJ FOR RENAL FX MC SCH (20:30)
[2017-03-15] MEDS ORDERED: FAMOTIDINE 20 MG/2 ML IV SCH (20:30)
[2017-03-15] MEDS ORDERED: SENNA/DOCUSATE TABLET NG PRN (20:30)
[2017-03-15] MEDS ORDERED: SENNOSIDES 8.8 MG/5 ML ORAL SOL NG PRN (20:30)
[2017-03-15] MEDS ORDERED: BISACODYL 10 MG SUPP PR PRN (20:30)
[2017-03-15] MEDS: QUETIAPINE 25MG TABLET PO SCH (21:05)
[2017-03-15] MEDS: ALBUTEROL/IPRATROPIUM 2.5MG/0.5MG, 3 ML INLINE SCH (22:25)
[2017-03-15] MEDS: FENTANYL PF 100 MCG/2ML IVPush PRN (23:06)
[2017-03-16] MEDS: PROPOFOL 100 ML IV PRN ×3 (00:34→20:00)
[2017-03-16] MEDS: FENTANYL PF 100 MCG/2ML IVPush PRN ×8 (00:39→19:29)
[2017-03-16] MEDS: MEROPENEM 1 GM in SODIUM CHLORIDE 0.9% 100 ML IV SCH ×3 (01:03→16:29)
[2017-03-16] MEDS: ALBUTEROL/IPRATROPIUM 2.5MG/0.5MG, 3 ML IPPB SCH ×4 (02:20→18:20)
[2017-03-16] MEDS: FAMOTIDINE 20 MG/2 ML IV SCH ×2 (02:45→14:06)
[2017-03-16] MEDS: INSULIN DETEMIR 100 UNITS/ML, PEN SQ-INSULIN SCH ×2 (03:15→15:05)
[2017-03-16] MEDS: INSULIN ASPART 100 UNITS/ML, PEN SQ-INSULIN SCH ×4 (03:17→21:34)
[2017-03-16 04:00] VITALS: BP 126/50
[2017-03-16] MEDS: methylPREDNISolone SOD SUCC 40 MG/ML IVPush SCH ×4 (04:06→21:31)
[2017-03-16 04:16] LABS: ABG COLLECTION SITE RIGHT RADIAL; COLLATERAL CIRCULATION TESTING NORMAL
[2017-03-16 04:18] LABS: HEMATOCRIT 33.5 % (39.2-51.8); HEMOGLOBIN 11.1 g/dL (13.7-18.0); WHITE BLOOD COUNT 14.6 x10^3/uL (3.4-10)
[2017-03-16 04:29] LABS: BLOOD UREA NITROGEN 53 mg/dL (7-18)
[2017-03-16 04:32] LABS: ASPARTATE AMINO TRANSFERASE 24 U/L (15-37)
[2017-03-16] MEDS: LABETALOL 100 MG TABLET PO SCH ×3 (06:00→22:00)
[2017-03-16] MEDS: ALBUTEROL/IPRATROPIUM 2.5MG/0.5MG, 3 ML INLINE SCH ×4 (06:45→20:30)
[2017-03-16 07:57] LABS: HISTO GAL AG UR RESULT <0.5 (<0.5 ng/mL)
[2017-03-16] MEDS: PICC FLUSH PROTOCOL XX SCH ×2 (09:00→21:00)
[2017-03-16] MEDS: ENOXAPARIN 40 MG/0.4 ML SQ SCH (09:15)
[2017-03-16] MEDS ORDERED: FUROSEMIDE 20 MG/2 ML IV ONE (10:00)
[2017-03-16] MEDS: OXYcodone 5 MG/5 ML ORAL.SOL UDC NG PRN ×2 (16:28→21:41)
[2017-03-16] MEDS: OCULAR LUBRICANT OPHTH OINT 3.5 GM EACHEYE PRN (16:28)
[2017-03-16] MEDS: FUROSEMIDE 20 MG/2 ML IV SCH (16:29)
[2017-03-16] MEDS: QUETIAPINE 25MG TABLET PO SCH (21:30)
[2017-03-17] MEDS: MEROPENEM 1 GM in SODIUM CHLORIDE 0.9% 100 ML IV SCH ×2 (01:26→09:52)
[2017-03-17] MEDS: FAMOTIDINE 20 MG/2 ML IV SCH ×2 (02:16→14:00)
[2017-03-17] MEDS: ALBUTEROL/IPRATROPIUM 2.5MG/0.5MG, 3 ML INLINE SCH ×3 (02:20→10:55)
[2017-03-17] MEDS: INSULIN DETEMIR 100 UNITS/ML, PEN SQ-INSULIN SCH (03:05)
[2017-03-17] MEDS: INSULIN ASPART 100 UNITS/ML, PEN SQ-INSULIN SCH ×2 (03:07→10:12)
[2017-03-17] MEDS: methylPREDNISolone SOD SUCC 40 MG/ML IVPush SCH ×2 (03:31→09:52)
[2017-03-17 04:00] VITALS: BP 130/50
[2017-03-17] MEDS: FENTANYL PF 100 MCG/2ML IVPush PRN ×2 (04:02→10:01)
[2017-03-17 04:29] LABS: ABG COLLECTION SITE RIGHT RADIAL; COLLATERAL CIRCULATION TESTING NORMAL
[2017-03-17 04:34] LABS: HEMATOCRIT 33.2 % (39.2-51.8); HEMOGLOBIN 11.2 g/dL (13.7-18.0)
[2017-03-17 04:41] LABS: BLOOD UREA NITROGEN 55 mg/dL (7-18)
[2017-03-17] MEDS: OXYcodone 5 MG/5 ML ORAL.SOL UDC NG PRN ×2 (05:25→11:18)
[2017-03-17] MEDS: LABETALOL 100 MG TABLET PO SCH ×2 (06:00→14:00)
[2017-03-17] MEDS: PROPOFOL 100 ML IV PRN (06:21)
[2017-03-17] MEDS: FUROSEMIDE 20 MG/2 ML IV SCH (07:33)
[2017-03-17] MEDS: ENOXAPARIN 40 MG/0.4 ML SQ SCH (07:33)
[2017-03-17] MEDS ORDERED: METHYLNALTREXONE 12 MG/0.6 ML SQ ONE (08:30)
[2017-03-17] MEDS: PICC FLUSH PROTOCOL XX SCH (09:00)
[2017-03-17] MEDS ORDERED: PROPOFOL 100 ML IV ONE (14:49)
[2017-03-17] MEDS ORDERED: ATROPINE OPHTH SOLN 1%, 2ML PO PRN (15:00)
[2017-03-17] MEDS ORDERED: HYDROmorphone 10 MG in SODIUM CHLORIDE 0.9% 245 ML IV PRN (15:00)
[2017-03-17] MEDS ORDERED: LORazepam 2 MG/ML, 1ML IV ONE (15:00)
[2017-03-17] MEDS ORDERED: LORazepam 2 MG/ML, 1ML IV PRN (15:00)
[2017-03-18] MEDS ORDERED: METHYLNALTREXONE 12 MG/0.6 ML SQ PRN (12:00)
[2017-03-18] MEDS ORDERED: HYDROmorphone 10 MG in SODIUM CHLORIDE 0.9% 245 ML IV PRN (15:00)
== END 2017-03-17 22:36 | disposition expired | DRG 166 ==
LOC: ED 11:27 → EDIP 13:04 → 4NOR 14:31 → CCU 03-02 11:08
PROVIDERS: ADMIT Student in an Organized Health Care Education/Training Program; ATTEND Student in an Organized Health Care Education/Training Program
PROC: 0T9B70Z Drainage of Bladder with Drainage Device, Via Natural or Artificial Opening (ICD-10-PCS; 2017-02-23)
PROC: 3E0234Z Introduction of Serum, Toxoid and Vaccine into Muscle, Percutaneous Approach (ICD-10-PCS; 2017-02-24)
PROC: 0W9B3ZZ Drainage of Left Pleural Cavity, Percutaneous Approach (ICD-10-PCS; 2017-02-26)
PROC: 0B9J8ZX Drainage of Left Lower Lung Lobe, Via Natural or Artificial Opening Endoscopic, Diagnostic (ICD-10-PCS; principal; 2017-03-02)
PROC: 0B9C8ZX Drainage of Right Upper Lung Lobe, Via Natural or Artificial Opening Endoscopic, Diagnostic (ICD-10-PCS; 2017-03-02)
PROC: 0B9G8ZX Drainage of Left Upper Lung Lobe, Via Natural or Artificial Opening Endoscopic, Diagnostic (ICD-10-PCS; 2017-03-02)
PROC: 02HV33Z Insertion of Infusion Device into Superior Vena Cava, Percutaneous Approach (ICD-10-PCS; 2017-03-02)
PROC: B548ZZA Ultrasonography of Superior Vena Cava, Guidance (ICD-10-PCS; 2017-03-02)
PROC: 0BH17EZ Insertion of Endotracheal Airway into Trachea, Via Natural or Artificial Opening (ICD-10-PCS; 2017-03-03)
PROC: 5A1955Z Respiratory Ventilation, Greater than 96 Consecutive Hours (ICD-10-PCS; 2017-03-03)
PROC: 0BH18EZ Insertion of Endotracheal Airway into Trachea, Via Natural or Artificial Opening Endoscopic (ICD-10-PCS; 2017-03-03)
PROC: 0W9B3ZZ Drainage of Left Pleural Cavity, Percutaneous Approach (ICD-10-PCS; 2017-03-10)
DX: J69.0 Pneumonitis due to inhalation of food and vomit (principal); J96.01 Acute respiratory failure with hypoxia; N17.0 Acute kidney failure with tubular necrosis; E43 Unspecified severe protein-calorie malnutrition; G93.41 Metabolic encephalopathy; I50.33 Acute on chronic diastolic (congestive) heart failure; R04.2 Hemoptysis; I27.29 Other secondary pulmonary hypertension; I11.0 Hypertensive heart disease with heart failure; I27.81 Cor pulmonale (chronic); K59.00 Constipation, unspecified; I10 Essential (primary) hypertension; K21.9 Gastro-esophageal reflux disease without esophagitis; G47.00 Insomnia, unspecified; E87.6 Hypokalemia; I35.1 Nonrheumatic aortic (valve) insufficiency; I07.1 Rheumatic tricuspid insufficiency; Z66 Do not resuscitate; Z51.5 Encounter for palliative care; Z87.891 Personal history of nicotine dependence; Z68.22 Body mass index [BMI] 22.0-22.9, adult; Z23 Encounter for immunization
CPT/HCPCS: 31622; 31623; 31624; 32555; 36415; 36569; 36600; 70450; 71010; 71250; 71275; 74000; 76937; 77001; 80048; 80053; 81003; 82040; 82803; 82805; 82945; 82947; 82962; 83605; 83615; 83735; 84100; 84155; 84157; 84478; 84484; 85025; 85379; 86331; 86480; 86602; 86606; 86609; 86631; 86632; 86635; 86671; 86698; 86713; 86738; 87015; 87040; 87070; 87075; 87077; 87081; 87102; 87116; 87205; 87206; 87278; 87385; 87400; 87449; 87451; 87581; 87633; 88108; 88112; 88305; 88312; 89051; 90686; 90732; 93005; 93306; 93970; 94002; 94003; 94640; 94660; 96365; J0456; J0696; J1170; J1650; J1815; J1940; J2185; J2250; J2543; J2704; J3010; J3480; J3490; J7608; J7620; P9047; Q9967; C1751; J0330; J0360; J1630; J2060; J2920; J2930; J7030; J7040; J7050; S0028